=== PATIENT | female | born 1990 | race Caucasian/White ===

== ENCOUNTER 2023-05-21 12:22 | Emergency (ER) | payer SELFPAY ==
[2023-05-21 12:34] VITALS: BP 113/69; PULSE 87; RESP 18; TEMP 100; BMI 29.6
[2023-05-21] MEDS ORDERED: SODIUM CHLORIDE 0.9% 500 ML INFUS.BAG IV ONE (13:18)
[2023-05-21] MEDS ORDERED: ONDANSETRON 4 MG/2 ML VIAL IVPUSH ONE (13:18)
[2023-05-21] MEDS ORDERED: PYRIDOXINE HCL (B-6) 50 MG TABLET (FP) PO ONE (13:32)
== END 2023-05-21 14:13 | disposition left against medical advice (07) ==
LOC: JER 12:22
DX: O21.9 Vomiting of pregnancy, unspecified (principal); O26.899 Other specified pregnancy related conditions, unspecified trimester; R53.1 Weakness; Z3A.00 Weeks of gestation of pregnancy not specified
CPT/HCPCS: 99282-25